=== PATIENT | female | born 1970 | race African-American/Black ===

== ENCOUNTER 2016-07-18 08:19 | Emergency (ER) | payer MEDICAID ==
[2016-07-18 08:20] VITALS: BMI 20.4
[2016-07-18 08:40] VITALS: BP 134/73; PULSE 65; TEMP 98.9
--- NOTE | 2016-07-18 09:45 | EDPRACDOC ---
ED Hip Problem HPI - General Information Chief Complaint: Hip Pain Stated Complaint: HIP PAIN Time Seen by Provider: 07/18/16 09:26 Information Source: Patient Mode of Arrival: Car Home Medications: Home Medications Cyclobenzaprine HCl [Flexeril] 5 mg PO Q8H PRN #20 tablet 06/07/16 Ibuprofen Tablet [Motrin] 600 mg PO Q6H #30 tab 06/07/16 Cyclobenzaprine HCl [Flexeril] 10 mg PO Q8H #14 tab 07/18/16 Ibuprofen Tablet [Motrin] 600 mg PO Q6H PRN #20 tab 07/18/16 Allergies/Adverse Reactions: Allergies Allergy/AdvReac Type Severity Reaction Status Date / Time ferumoxytol [From zePASS] Allergy Anaphylaxis Verified 07/18/16 08:37 * - History of Present Illness Onset: Mar HPI: Patient reports she has had bilateral hip pain since March, has seen PCP - got Oxycodone, was seen here and got pain medication and msk relaxer. Patient states has not followed up since. Patient reports increasing pain. Was told she had arthritis, had xrays done previously. Patient denies change in symptoms, no new injury, no numbness/tingling, no radiation of pain. Hip Problem Location: Reports: Right, Left Tetanus Up To Date?: Yes Able to Bear Weight: Fully Pain Severity: Mild Associated Signs & Symptoms: Reports: None ED Past Medical History - History Reviewed Yes Nurses notes reviewed and agree except as marked - Patient Medical History Psychological History: Denies: Depression Systemic History: Reports: Anemia (IRON DEF) - Social Medical History Smoking Status: Light tobacco smoker (less than 5/day) ETOH: None Substance Abuse: None Lives In: Home EDM Review of Systems - Review of Systems ROS Negative Except as Marked: Yes All systems reviewed and were negative except as marked Constitutional: No Symptoms Reported Eyes: No Symptoms Reported Throat: No Symptoms Reported Nose: No Symptoms Reported Respiratory: No Symptoms Reported Cardiovascular: No Symptoms Reported Genitourinary: No Symptoms Reported Neurological: No Symptoms Reported Musculoskeletal: Hip Integumentary: No Symptoms Reported - Physical Exam Constitutional: Alert (Awake), No apparent distress Oriented to: Time, Person, Place Last recorded Vital Signs: Last Vital Signs Temp 98.9 F 07/18/16 08:37 Pulse 65 07/18/16 08:37 Resp 18 07/18/16 08:37 BP 134/73 07/18/16 08:37 Pulse Ox 99 07/18/16 08:37 Oxygen Pulse Oxygen Saturation 99 O2 Device Room Air Oxygen Flow Rate Fraction of Inspired Oxygen ( FIO2) - HEENT Head: Normal ( normocephalic) Eye Exam: Normal (PERRL, EOMI, Sclera white) Neck: Normal (FROM, trachea at midline) - Respiratory/Cardiovascular Respiratory: Normal - CTA (BBS clear to auscultation without adventitious sounds ) Cardiovascular: Normal (RRR without murmur, gallop or rub) - GI Auscultation: Normal (NABS) Tenderness: Non tender - Musculoskeletal Back: Normal (Non-Tender) Extremities: Normal (Normal tone, Pulses 2+ No cyanosis or edema, FROM) Musculoskeletal Comment: Reports bilateral hip pain - no problem with ROM on exam, no tenderness, no redness/swelling/crepitus or noted problem with either hip. Normal distal exam - pulses/cap refill/ROM. - Integumentary Skin: Normal, Warm, Dry Lymphatics: Normal (no adenopathy) - Neurologic Memory Impaired: Normal Motor Function: Normal (Normal tone, Pulses 2+ No cyanosis or edema, FROM) Mood Description: Normal ED Hip Problem Physical Exam - Musculoskeletal Hip: Normal Hip Deformity: Normal Pelvis: Normal Thigh: Normal Back: Normal Distal Function/Circulation: Normal - Re-evaluation Re-evaluation 1 Re-evaluation Time: 09:45 I have offered re-xray of hips, patient declines, states she will wait for her appt with her PCP or referral to Ortho. Discussed the ED cannot manage chronic pain and I will not be giving narcotic pain medication. Decision Time to Discharge: 09:47 - Departure Disposition: Home Condition: Good Final Diagnosis: Bilateral hip pain Instructions: RICE: Routine Care for Injuries Education/Counseling Given To: Patient Education/Counseling Given Regarding: Diagnosis, Treatment, Prognosis, Follow Up Referrals: None,No Provider [Primary Care Provider] - One Week Darien Fierro MD [Staff Physician] - 1-2 days Prescriptions: New Cyclobenzaprine HCl [Flexeril] 10 mg PO Q8H #14 tab Ibuprofen Tablet [Motrin] 600 mg PO Q6H PRN #20 tab PRN Reason: Pain No Action Cyclobenzaprine HCl [Flexeril] 5 mg PO Q8H PRN #20 tablet PRN Reason: Muscle Spasms Ibuprofen Tablet [Motrin] 600 mg PO Q6H #30 tab Additional Instructions: Please followup with PCP in 1-2 days. Rest, warm compresses. Return to ED if symptoms worsen/change or concerns arise. Consider followup with Ortho for further evaluation and care.
== END 2016-07-18 10:00 | disposition home or self-care (01) ==
LOC: ED 08:19
DX: M25.552 Pain in left hip (principal); M25.551 Pain in right hip
CPT/HCPCS: 99282